=== PATIENT | male | born 2005 | race Caucasian/White ===

== ENCOUNTER 2024-03-25 16:00 | Emergency (ER) | payer BC ==
[~2024-03-25] VITALS: Ht 172.7 cm; Wt 90.7 kg
[2024-03-25 16:14] VITALS: BP_SYST 115; PULSE 87; RESP 18; TEMP 98.3; O2SAT 98
[2024-03-25 16:51] VITALS: BP_SYST 115; PULSE 87; RESP 18; TEMP 98.3; O2SAT 98
== END 2024-03-25 16:52 | disposition home or self-care (01) ==
LOC: SED 16:00
DX: S01.01XD Laceration without foreign body of scalp, subsequent encounter (principal); X58.XXXD Exposure to other specified factors, subsequent encounter
CPT/HCPCS: 99281